=== PATIENT | male | born 1945 | race Caucasian/White ===

== ENCOUNTER → 2016-10-22 | Outpatient (RCR) | payer MEDICARE, OTHER ==
[~2016-10-22] MED LIST: ALLO100T PO; AMLO10TA2 PO; ASPI-999 PO; CLON0.1T PO; CRV25T PO; DOXA8TAB73 PO; ERGO50006 PO; FERR-74 PO; FINA5TAB6 PO; OMEG500C PO
== END | disposition home or self-care (01) ==
LOC: ONC 07-24 10:32
PROVIDERS: ATTEND Radiology Radiation Oncology
DX: Z51.0 Encounter for antineoplastic radiation therapy (principal); C61 Malignant neoplasm of prostate
CPT/HCPCS: 77300; 77301; 77307; 77334; 77336; 77338; 77385; 99214

== ENCOUNTER 2016-10-27 07:50 | Outpatient (RCR) | payer MEDICARE, OTHER | END 2016-11-02 10:45 | disposition home or self-care (01) | LOC: ONC 07:50 | PROVIDERS: ATTEND Radiology Radiation Oncology | DX: Z51.0 Encounter for antineoplastic radiation therapy (principal); C61 Malignant neoplasm of prostate | CPT/HCPCS: 77336; 77385 ==

== ENCOUNTER 2016-11-26 10:49 | Outpatient (RCR) | payer MEDICARE, OTHER ==
[2016-11-19] MEDS: FERRIC CARBOXYMALTOSE 750 MG /NS 250 ML IV SCH ×2 (11:22)
[2016-11-19 12:14] VITALS: BP 132/72
[~2016-11-26] VITALS: Ht 167.6 cm; Wt 95.3 kg
[~2016-11-26 10:49] MED LIST changes: +ACETAMINOPHEN 500 MG TAB (TYLENOL) ONE; +diphenhydrAMINE 50 MG/ML INJ (BENADRYL) ONE
[2016-11-26] MEDS: FERRIC CARBOXYMALTOSE 750 MG /NS 250 ML IV SCH ×2 (11:08)
[2016-11-26 11:30] VITALS: BP 144/78
== END 2017-02-17 | disposition home or self-care (01) ==
LOC: SDC 10:49
PROVIDERS: ATTEND Internal Medicine Nephrology
DX: D50.9 Iron deficiency anemia, unspecified (principal); D63.1 Anemia in chronic kidney disease; N18.4 Chronic kidney disease, stage 4 (severe); Z79.899 Other long term (current) drug therapy
CPT/HCPCS: 96365

== ENCOUNTER 2016-12-31 15:00 | Outpatient (RCR) | payer MEDICARE, OTHER ==
[~2016-12-31 15:00] MED LIST changes: -ACETAMINOPHEN 500 MG TAB (TYLENOL) ONE; -FERR-74 PO; +FERR325T18 PO; -diphenhydrAMINE 50 MG/ML INJ (BENADRYL) ONE
== END 2017-03-31 | disposition home or self-care (01) ==
LOC: ONC 15:00
PROVIDERS: ATTEND Radiology Radiation Oncology
DX: C61 Malignant neoplasm of prostate (principal)
CPT/HCPCS: 36415; 84153; 99213

== ENCOUNTER → 2017-08-05 | Outpatient (CLI) | payer MEDICARE, OTHER ==
--- NOTE | 2017-08-05 11:33 | Diagnostic Imaging Report ---
PROCEDURE: US Renal Bilateral. TECHNIQUE: Multiple real-time grayscale images were obtained over the kidneys in various projections bilaterally. INDICATION: Chronic kidney disease, stage IV. COMPARISON: None. FINDINGS: Right: The right kidney measures 9.8 cm in length. The renal cortex is thinned and echogenic. There is a 2.1 cm hypoechoic cyst in the inferior right kidney. There is no evidence of calculi, solid focal mass or hydronephrosis. No perinephric fluid collections are identified. Left: The left kidney measures 10.8 cm in length. There is renal cortical thinning and increased echogenicity. There are two small hypoechoic cysts in the left kidney, the largest measuring up to 1.3 cm in diameter. There is no evidence of calculi, solid focal mass or hydronephrosis. No perinephric fluid collections are identified. There is no abdominal ascites. Views of the pelvis demonstrate mildly distended urinary bladder. Bilateral ureteral jets were not seen. IMPRESSION: 1. Echogenic, thinned renal cortex, consistent with known chronic kidney disease. No hydronephrosis. Dictated by: Dictated on workstation # [id number]
--- NOTE | 2017-08-05 11:34 | Diagnostic Imaging Report ---
INDICATION: Chronic changes CKD stage 4. Multiple real-time grayscale imaging of the bladder was performed pre-and postvoid. Prevoid bladder volume is calculated to be 54 mL. No significant post void residual bladder volume is seen. The bladder wall is normal in thickness. No bladder mass is detected. IMPRESSION: Unremarkable bladder ultrasound. Dictated by: Dictated on workstation # [id number]
== END ==
LOC: RAD 09:55
PROVIDERS: ATTEND Internal Medicine Nephrology
DX: N18.4 Chronic kidney disease, stage 4 (severe) (principal); I12.9 Hypertensive chronic kidney disease with stage 1 through stage 4 chronic kidney disease, or unspecified chronic kidney disease; D64.9 Anemia, unspecified; E21.1 Secondary hyperparathyroidism, not elsewhere classified; E55.9 Vitamin D deficiency, unspecified; Z72.0 Tobacco use
CPT/HCPCS: 76770; 76857

== ENCOUNTER 2017-11-04 12:45 | Outpatient (RCR) | payer MEDICARE, OTHER ==
[2017-10-21 13:02] VITALS: BP 141/74
[2017-10-21 13:27] LABS: HEMOGLOBIN 9.7 G/DL (13.3-17.7)
[2017-10-21 13:45] LABS: ALBUMIN 4.1 GM/DL (3.2-4.5); CALCIUM 9.4 MG/DL (8.5-10.1); CREATININE SERUM 4.9 MG/DL (0.60-1.30); POTASSIUM 4.6 MMOL/L (3.6-5.0)
[2017-10-21] MEDS: DARBEPOETIN 40 MCG/ML (ARANESP) 1 ML VIAL SC SCH (14:10)
[2017-10-21 14:30] VITALS: BP 141/74
[~2017-11-04] VITALS: Ht 167.6 cm; Wt 95.3 kg
[~2017-11-04 12:45] MED LIST changes: -AMLO10TA2 PO; +AMLO10TA6 PO
[2017-11-04] MEDS: DARBEPOETIN 40 MCG/ML (ARANESP) 1 ML VIAL SC SCH (12:58)
[2017-11-04 13:00] VITALS: BP 129/70
== END 2017-11-14 | disposition home or self-care (01) ==
LOC: SDC 12:45
PROVIDERS: ATTEND Internal Medicine Nephrology
DX: N18.4 Chronic kidney disease, stage 4 (severe) (principal); D63.1 Anemia in chronic kidney disease; Z79.899 Other long term (current) drug therapy
CPT/HCPCS: 36415; 80069; 82728; 83540; 85014; 85018; 96372

== ENCOUNTER 2018-01-27 12:55 | Outpatient (RCR) | payer MEDICARE, OTHER ==
[2017-11-18 13:48] LABS: HEMOGLOBIN 10.4 G/DL (13.3-17.7); MEAN PLATELET VOLUME 9.6 FL (7.4-10.4); RED BLOOD COUNT 3.23 10^6/uL (4.35-5.85); RED CELL DISTRIBUTION WIDTH 13.8 % (10.0-14.5); WHITE BLOOD COUNT 4.4 10^3/uL (4.3-11.0)
[2017-11-18 14:02] LABS: ALBUMIN 4.2 GM/DL (3.2-4.5); CALCIUM 9.3 MG/DL (8.5-10.1); CREATININE SERUM 5.09 MG/DL (0.60-1.30); PHOSPHORUS 5.2 MG/DL (2.3-4.7); POTASSIUM 4.9 MMOL/L (3.6-5.0)
[2017-11-18] MEDS: DARBEPOETIN 40 MCG/ML (ARANESP) 1 ML VIAL SC SCH (14:32)
[2017-11-18 14:35] VITALS: BP 141/80
[2017-12-02] MEDS: DARBEPOETIN 40 MCG/ML (ARANESP) 1 ML VIAL SC SCH (13:04)
[2017-12-02 13:05] VITALS: BP 140/73
[2017-12-16 13:29] LABS: BILIRUBIN,URINE NEGATIVE (NEGATIVE); CLARITY,URINE CLEAR; COLOR,URINE YELLOW; GLUCOSE, URINE (UA) NEGATIVE (NEGATIVE); KETONES,URINE NEGATIVE (NEGATIVE); LEUKOCYTE ESTERASE ,URINE NEGATIVE (NEGATIVE); NITRITE,URINE NEGATIVE (NEGATIVE); PH,URINE 5 (5-9); PROTEIN,URINE 3+ (NEGATIVE); UROBILINOGEN,URINE NORMAL (NORMAL)
[2017-12-16 13:29] LABS: HEMOGLOBIN 11.1 G/DL (13.3-17.7); MEAN PLATELET VOLUME 9.5 FL (7.4-10.4); RED BLOOD COUNT 3.58 10^6/uL (4.35-5.85); RED CELL DISTRIBUTION WIDTH 13.7 % (10.0-14.5); WHITE BLOOD COUNT 4.3 10^3/uL (4.3-11.0)
[2017-12-16 13:50] LABS: BACTERIA,URINE TRACE /HPF; RBC,URINE RARE /HPF; SQUAMOUS EPITHELIAL CELL,UR 0-2 /HPF; WBC,URINE RARE /HPF
[2017-12-16 13:51] LABS: ALBUMIN 4.1 GM/DL (3.2-4.5); CALCIUM 9.4 MG/DL (8.5-10.1); CREATININE SERUM 5.55 MG/DL (0.60-1.30); PHOSPHORUS 5.6 MG/DL (2.3-4.7); POTASSIUM 5.1 MMOL/L (3.6-5.0); URIC ACID 10.6 MG/DL (2.6-7.2)
[2017-12-16 13:55] VITALS: BP 137/71
[2017-12-30 13:31] LABS: HEMOGLOBIN 10.2 G/DL (13.3-17.7)
[2017-12-30] MEDS: DARBEPOETIN 25 MCG/ML (ARANESP) 1 ML HOSPITAL SC SCH (14:00)
[2017-12-30 14:05] VITALS: BP 140/70
[2018-01-13 13:34] LABS: BILIRUBIN,URINE NEGATIVE (NEGATIVE); CLARITY,URINE SLIGHTLY CLOUDY; COLOR,URINE YELLOW; GLUCOSE, URINE (UA) NEGATIVE (NEGATIVE); KETONES,URINE NEGATIVE (NEGATIVE); LEUKOCYTE ESTERASE ,URINE NEGATIVE (NEGATIVE); NITRITE,URINE NEGATIVE (NEGATIVE); PH,URINE 5 (5-9); PROTEIN,URINE 4+ (NEGATIVE); UROBILINOGEN,URINE NORMAL (NORMAL)
[2018-01-13] MEDS: DARBEPOETIN 25 MCG/ML (ARANESP) 1 ML HOSPITAL SC SCH (13:38)
[2018-01-13 13:43] LABS: BACTERIA,URINE NEGATIVE /HPF; RBC,URINE RARE /HPF; SQUAMOUS EPITHELIAL CELL,UR RARE /HPF
[2018-01-13 13:55] VITALS: BP 143/74
[2018-01-13 14:01] LABS: HEMOGLOBIN 10.3 G/DL (13.3-17.7); MEAN PLATELET VOLUME 9.4 FL (7.4-10.4); RED BLOOD COUNT 3.41 10^6/uL (4.35-5.85); RED CELL DISTRIBUTION WIDTH 13.6 % (10.0-14.5); WHITE BLOOD COUNT 4.8 10^3/uL (4.3-11.0)
[2018-01-13 14:25] LABS: INR 1.1 (0.8-1.4)
[2018-01-13 14:34] LABS: ALBUMIN 3.9 GM/DL (3.2-4.5); CALCIUM 9.2 MG/DL (8.5-10.1); CREATININE SERUM 4.61 MG/DL (0.60-1.30); POTASSIUM 4.7 MMOL/L (3.6-5.0); URIC ACID 9.1 MG/DL (2.6-7.2)
[~2018-01-27] VITALS: Ht 167.6 cm; Wt 95.3 kg
[2018-01-27 13:10] VITALS: BP 135/70
[2018-01-27] MEDS: DARBEPOETIN 25 MCG/ML (ARANESP) 1 ML HOSPITAL SC SCH (13:10)
== END 2018-02-16 | disposition home or self-care (01) ==
LOC: SDC 12:55
PROVIDERS: ATTEND Internal Medicine Nephrology
DX: N18.4 Chronic kidney disease, stage 4 (severe) (principal); D63.1 Anemia in chronic kidney disease; Z79.899 Other long term (current) drug therapy
CPT/HCPCS: 36415; 80069; 81000; 82570; 82728; 83540; 84550; 85014; 85018; 85027; 85610; 85730; 96372

== ENCOUNTER 2018-05-05 12:59 | Outpatient (RCR) | payer MEDICARE, OTHER ==
[2018-02-10 13:27] VITALS: BP 152/79
[2018-02-10 14:11] LABS: HEMOGLOBIN 10.2 G/DL (13.3-17.7); MEAN PLATELET VOLUME 9.8 FL (7.4-10.4); RED CELL DISTRIBUTION WIDTH 14.1 % (10.0-14.5); WHITE BLOOD COUNT 4.8 10^3/uL (4.3-11.0)
[2018-02-10] MEDS: DARBEPOETIN 40 MCG/ML (ARANESP) HOSPITAL SC SCH (14:38)
[2018-02-10 14:44] VITALS: BP 152/79
[2018-02-10 14:44] LABS: ALBUMIN 3.8 GM/DL (3.2-4.5); CALCIUM 9.2 MG/DL (8.5-10.1); CREATININE SERUM 5.02 MG/DL (0.60-1.30); PHOSPHORUS 4.9 MG/DL (2.3-4.7); POTASSIUM 5.2 MMOL/L (3.6-5.0); URIC ACID 9.1 MG/DL (2.6-7.2)
[2018-02-24] MEDS: DARBEPOETIN 40 MCG/ML (ARANESP) HOSPITAL SC SCH (13:03)
[2018-02-24 13:05] VITALS: BP 133/73
[2018-03-10 13:16] LABS: HEMOGLOBIN 10.5 G/DL (13.3-17.7)
[2018-03-10] MEDS: DARBEPOETIN 40 MCG/ML (ARANESP) HOSPITAL SC SCH (13:36)
[2018-03-10 13:38] VITALS: BP 146/77
[2018-04-07 12:53] VITALS: BP 136/73
[2018-04-07 13:21] LABS: HEMOGLOBIN 9.5 G/DL (13.3-17.7)
[2018-04-07] MEDS: DARBEPOETIN 25 MCG/ML (ARANESP) 1 ML HOSPITAL SC SCH (13:55)
[2018-04-21 13:10] VITALS: BP 129/67
[2018-04-21] MEDS: DARBEPOETIN 25 MCG/ML (ARANESP) 1 ML HOSPITAL SC SCH (13:10)
[~2018-05-05] VITALS: Ht 167.6 cm; Wt 93.9 kg
[~2018-05-05 12:59] MED LIST changes: -AMLO10TA6 PO; +AMLO10TA7 PO
[2018-05-05 13:20] VITALS: BP 135/71
[2018-05-05 13:55] LABS: CALCIUM 9.2 MG/DL (8.5-10.1); CREATININE SERUM 6.35 MG/DL (0.60-1.30); PHOSPHORUS 5.5 MG/DL (2.3-4.7)
[2018-05-05] MEDS: DARBEPOETIN 25 MCG/ML (ARANESP) 1 ML HOSPITAL SC SCH (13:57)
== END 2018-05-11 | disposition home or self-care (01) ==
LOC: SDC 12:59
PROVIDERS: ATTEND Internal Medicine Nephrology
DX: N18.4 Chronic kidney disease, stage 4 (severe) (principal); D63.1 Anemia in chronic kidney disease; I12.9 Hypertensive chronic kidney disease with stage 1 through stage 4 chronic kidney disease, or unspecified chronic kidney disease; R80.9 Proteinuria, unspecified; E21.1 Secondary hyperparathyroidism, not elsewhere classified; E55.9 Vitamin D deficiency, unspecified; R60.9 Edema, unspecified; Z72.0 Tobacco use
CPT/HCPCS: 36415; 80069; 82728; 83540; 84550; 85014; 85018; 85027; 96372

== ENCOUNTER 2018-08-04 13:25 | Outpatient (RCR) | payer MEDICARE, OTHER ==
[2018-05-19] MEDS: DARBEPOETIN 25 MCG/ML (ARANESP) 1 ML HOSPITAL SC SCH (13:12)
[2018-05-19 13:16] VITALS: BP 146/76
[2018-06-02 13:22] LABS: HEMOGLOBIN 10.5 G/DL (13.3-17.7)
[2018-06-02] MEDS: DARBEPOETIN 25 MCG/ML (ARANESP) 1 ML HOSPITAL SC SCH (13:45)
[2018-06-02 13:50] VITALS: BP 135/69
[2018-06-21 12:38] VITALS: BP 131/70
[2018-06-21] MEDS: DARBEPOETIN 25 MCG/ML (ARANESP) 1 ML HOSPITAL SC SCH (12:53)
[2018-07-05 13:00] VITALS: BP 145/74
[2018-07-05 13:25] LABS: HEMOGLOBIN 10.5 G/DL (13.3-17.7)
[2018-07-05] MEDS: DARBEPOETIN 25 MCG/ML (ARANESP) 1 ML HOSPITAL SC SCH (14:00)
[2018-07-21] MEDS: DARBEPOETIN 25 MCG/ML (ARANESP) 1 ML HOSPITAL SC SCH (13:15)
[2018-07-21 13:20] VITALS: BP 137/74
[~2018-08-04] VITALS: Ht 167.6 cm; Wt 93.9 kg
[2018-08-04 14:13] LABS: HEMOGLOBIN 10.3 G/DL (13.3-17.7)
[2018-08-04 14:24] LABS: ALBUMIN 4.2 GM/DL (3.2-4.5); CALCIUM 9.5 MG/DL (8.5-10.1); PHOSPHORUS 5.5 MG/DL (2.3-4.7); POTASSIUM 4.8 MMOL/L (3.6-5.0)
[2018-08-04] MEDS: DARBEPOETIN 25 MCG/ML (ARANESP) 1 ML HOSPITAL SC SCH (14:49)
[2018-08-04 14:55] VITALS: BP 150/77
== END 2018-08-17 | disposition home or self-care (01) ==
LOC: SDC 13:25
PROVIDERS: ATTEND Internal Medicine Nephrology
DX: N18.4 Chronic kidney disease, stage 4 (severe) (principal); D63.1 Anemia in chronic kidney disease; I12.9 Hypertensive chronic kidney disease with stage 1 through stage 4 chronic kidney disease, or unspecified chronic kidney disease; R80.9 Proteinuria, unspecified; E21.1 Secondary hyperparathyroidism, not elsewhere classified; E55.9 Vitamin D deficiency, unspecified; R60.9 Edema, unspecified; Z72.0 Tobacco use
CPT/HCPCS: 36415; 80069; 82728; 83540; 85014; 85018; 96372

== ENCOUNTER 2018-11-10 12:59 | Outpatient (RCR) | payer MEDICARE, OTHER ==
[2018-08-19] MEDS: DARBEPOETIN 25 MCG/ML (ARANESP) 1 ML HOSPITAL SC SCH (12:19)
[2018-08-19 12:22] VITALS: BP 137/73
[2018-09-01 11:44] LABS: HEMOGLOBIN 9.9 G/DL (13.3-17.7)
[2018-09-01] MEDS: DARBEPOETIN 25 MCG/ML (ARANESP) 1 ML HOSPITAL SC SCH (12:08)
[2018-09-01 12:36] VITALS: BP 140/70
[2018-09-16] MEDS: DARBEPOETIN 25 MCG/ML (ARANESP) 1 ML HOSPITAL SC SCH (13:25)
[2018-09-16 13:29] VITALS: BP 144/70
[2018-09-29 13:05] VITALS: BP 133/72
[2018-09-29 13:24] LABS: HEMOGLOBIN 9.8 G/DL (13.3-17.7)
[2018-09-29] MEDS: DARBEPOETIN 25 MCG/ML (ARANESP) 1 ML HOSPITAL SC SCH (13:44)
[2018-10-13] MEDS: DARBEPOETIN 25 MCG/ML (ARANESP) 1 ML HOSPITAL SC SCH (14:19)
[2018-10-13 14:32] VITALS: BP_SYST 124; BP_SYST 133; BP_SYST 141; BP_DIAS 100; BP_DIAS 72; BP_DIAS 75
[2018-10-27 13:54] LABS: CALCIUM 9.3 MG/DL (8.5-10.1); CREATININE SERUM 7.36 MG/DL (0.60-1.30); PHOSPHORUS 5.1 MG/DL (2.3-4.7); POTASSIUM 4.5 MMOL/L (3.6-5.0)
[2018-10-27 13:56] LABS: HEMOGLOBIN 9.5 G/DL (13.3-17.7)
[2018-10-27 14:25] VITALS: BP 143/73
[~2018-11-10] VITALS: Ht 167.6 cm; Wt 93.9 kg
[~2018-11-10 12:59] MED LIST changes: +DARBEPOETIN 40 MCG/ML (ARANESP) HOSPITAL SC ONE
[2018-11-10] MEDS: DARBEPOETIN 25 MCG/ML (ARANESP) 1 ML HOSPITAL SC SCH (13:28)
[2018-11-10 13:33] VITALS: BP 146/74
== END 2018-11-17 | disposition home or self-care (01) ==
LOC: SDC 12:59
PROVIDERS: ATTEND Internal Medicine Nephrology
DX: N18.4 Chronic kidney disease, stage 4 (severe) (principal); D63.1 Anemia in chronic kidney disease; I12.9 Hypertensive chronic kidney disease with stage 1 through stage 4 chronic kidney disease, or unspecified chronic kidney disease; R80.9 Proteinuria, unspecified; E21.1 Secondary hyperparathyroidism, not elsewhere classified; E55.9 Vitamin D deficiency, unspecified; R60.9 Edema, unspecified; Z72.0 Tobacco use
CPT/HCPCS: 36415; 80069; 82728; 83540; 85014; 85018; 96372

== ENCOUNTER → 2022-02-19 | Outpatient (CLI) | payer MEDICARE, OTHER ==
[~2022-02-19] MED LIST changes: +AMLO-251 PO; -AMLO10TA7 PO; +CLN.1T PO; -CLON0.1T PO; -DARBEPOETIN 40 MCG/ML (ARANESP) HOSPITAL SC ONE
== END ==
LOC: WOUNDCARE 10:59
PROVIDERS: ATTEND Family Medicine
DX: L97.212 Non-pressure chronic ulcer of right calf with fat layer exposed (principal); L89.313 Pressure ulcer of right buttock, stage 3; L98.422 Non-pressure chronic ulcer of back with fat layer exposed; L98.1 Factitial dermatitis; I89.0 Lymphedema, not elsewhere classified; N18.5 Chronic kidney disease, stage 5; D63.1 Anemia in chronic kidney disease; F17.290 Nicotine dependence, other tobacco product, uncomplicated
CPT/HCPCS: 11042; A6212; G0463

== ENCOUNTER → 2022-02-26 | Outpatient (CLI) | payer MEDICARE, OTHER | LOC: WOUNDCARE 08:16 | PROVIDERS: ATTEND Family Medicine | DX: L97.212 Non-pressure chronic ulcer of right calf with fat layer exposed (principal); L89.313 Pressure ulcer of right buttock, stage 3; L98.422 Non-pressure chronic ulcer of back with fat layer exposed; L98.1 Factitial dermatitis; I89.0 Lymphedema, not elsewhere classified; N18.5 Chronic kidney disease, stage 5; F17.290 Nicotine dependence, other tobacco product, uncomplicated; D63.1 Anemia in chronic kidney disease; L28.1 Prurigo nodularis; I96 Gangrene, not elsewhere classified | CPT/HCPCS: 11042; A6207; A6212; G0463 ==

== ENCOUNTER → 2022-03-02 | Outpatient (CLI) | payer MEDICARE, OTHER | LOC: WOUNDCARE 08:11 | PROVIDERS: ATTEND Family Medicine | DX: S81.801A Unspecified open wound, right lower leg, initial encounter (principal); I12.9 Hypertensive chronic kidney disease with stage 1 through stage 4 chronic kidney disease, or unspecified chronic kidney disease; N18.6 End stage renal disease; Z99.2 Dependence on renal dialysis; X58.XXXA Exposure to other specified factors, initial encounter | CPT/HCPCS: 29581; A6207; G0463 ==

== ENCOUNTER → 2022-03-06 | Outpatient (CLI) | payer MEDICARE, OTHER | LOC: WOUNDCARE 09:11 | PROVIDERS: ATTEND Family Medicine | DX: I96 Gangrene, not elsewhere classified (principal); L97.212 Non-pressure chronic ulcer of right calf with fat layer exposed; L89.313 Pressure ulcer of right buttock, stage 3; L28.1 Prurigo nodularis; L98.1 Factitial dermatitis; I89.0 Lymphedema, not elsewhere classified; N18.5 Chronic kidney disease, stage 5; D63.1 Anemia in chronic kidney disease; F17.290 Nicotine dependence, other tobacco product, uncomplicated | CPT/HCPCS: 11042; A6212; G0463 ==

== ENCOUNTER 2022-03-12 21:25 | Emergency (ER) | payer MEDICARE, OTHER ==
[~2022-03-12] VITALS: Ht 167.7 cm; Wt 89.8 kg
--- NOTE | 2022-03-12 21:45 | ED General ---
General Stated Complaint: FLUID OVERLOAD Source of Information: Patient (VERY POOR HISTORIAN. NO PRIOR VISITS HERE. NO FAMILY WITH PT ON ARRIVAL) History of Present Illness Date Seen by Provider: Mar 12, 2022 Time Seen by Provider: 21:29 Initial Comments PT ARRIVES VIA EMS FROM HOME HOME HEALTH NURSE CALLED EMS FOR PT TO BE TRANSFERRED TO [facility] PT IS A PERITONEAL DIALYSIS PATIENT HOME HEALTH NURSE REPORTED THAT PT HAS FLUID OVERLOAD WITH SWELLING TO HANDS AND FEET AND "POSSIBLE PERITONITIS" HGB WAS 7.5 FOR HOME HEALTH NURSE. PT DENIES ABDOMINAL PAIN OR ANY GI SYMPTOMS PT DENIES PAIN ANYWHERE OR FEELING BAD PT WAS UNAWARE OF HANDS AND FEET SWELLING PT DENIES SHORTNESS OF BREATH OR CHEST PAIN NO KNOWN FEVER NO COUGH PT HAS A CHRONIC RIGHT LEG WOUND, AND IS BEING SEEN AT WOUND CARE--RIGHT LEG IS HEAVILY WRAPPED AT THIS TIME. ARRIVES LATER AND STATES THAT LEG WOUND HAS BEEN THERE FOR "SEVERAL WEEKS" AND INITIALLY WAS INFECTED, BUT THE INFECTION IS GONE AND HE IS NO LONGER ON ANTIBIOTICS. PCP: DR. LUIS PASTRANA IN [place], [place] CHILD DEVELOPMENT PROFESSOR: DR. ROSA HOOD Allergies and Home Medications Allergies Coded Allergies: No Known Allergies (Unverified Allergy, Unknown, 08/29/15) Patient Home Medication List Home Medication List Reviewed: Yes Allopurinol (Allopurinol) 100 Mg Tablet, 100 MG PO HS, (Reported) Entered as Reported by: ISRAEL CLAY on 08/29/15 134 Amlodipine Besylate (Amlodipine Besylate) 10 Mg Tablet, 10 MG PO DAILY, (Reported) Entered as Reported by: ISRAEL CLAY on 08/29/15 134 Aspirin (Aspirin) 81 Mg Tab.chew, 81 MG PO DAILY, (Reported) Entered as Reported by: ISRAEL CLAY on 08/29/15 1341 Carvedilol (Coreg) 25 Mg Tab, 25 MG PO BID, (Reported) Entered as Reported by: ISRAEL CLAY on 08/29/15 134 Clonidine HCl (Clonidine HCl) 0.1 Mg Tablet, 0.1 MG PO BID, (Reported) Entered as Reported by: ISRAEL CLAY on 08/29/15 1341 Doxazosin Mesylate (Doxazosin Mesylate) 8 Mg Tablet, 8 MG PO HS, (Reported) Entered as Reported by: ISRAEL CLAY on 08/29/15 1341 Ergocalciferol (Vitamin D2) (Vitamin D2) 50,000 Unit Capsule, 50,000 UNIT PO MONTHLY, (Reported) Entered as Reported by: ISRAEL CLAY on 08/29/15 134 Ferrous Sulfate (Ferrous Sulfate) 325 Mg Tablet, 325 MG PO BID, (Reported) Entered as Reported by: ISRAEL CLAY on 08/29/15 134 Finasteride (Finasteride) 5 Mg Tablet, 5 MG PO DAILY, (Reported) Entered as Reported by: ISRAEL CLAY on 08/29/15 134 Ledbetter-3 Fatty Acids (Fish Oil) 500 Mg Capsule.dr, 1,400 MG PO DAILY, (Reported) Entered as Reported by: ISRAEL CLAY on 08/29/15 134 Review of Systems Review of Systems Constitutional: no symptoms reported EENTM: no symptoms reported Respiratory: no symptoms reported Cardiovascular: no symptoms reported Gastrointestinal: no symptoms reported Genitourinary: see HPI Musculoskeletal: see HPI Skin: no symptoms reported Psychiatric/Neurological: No Symptoms Reported Hematologic/Lymphatic: No Symptoms Reported Immunological/Allergic: no symptoms reported Past Qhsceka-[id number]-Xvhvgq Hx Seasonal Allergies Seasonal Allergies: No Past Medical History Surgeries: Yes (PERITONEAL DIALYSIS) Abdominal Respiratory: No Cardiac: Yes Hypertension Neurological: No Reproductive Disorders: No Genitourinary: Yes (PERITONEAL DIALYSIS; PROSTATE CANCER) Prostate Problems, Renal Failure, Dialysis Gastrointestinal: No Musculoskeletal: Yes (HYPERURICEMIA) Endocrine: No HEENT: No Cancer: Yes Prostate Did You Recieve Any Treatments: Yes What Type of Treatment Did You: Radiation Psychosocial: No Integumentary: Yes (CHRONIC WOUND RIGHT LEG) Blood Disorders: Yes (ANEMIA) Adverse Reaction/Blood Tranf: No Physical Exam Vital Signs Vital Signs - First Documented 03/12/22 21:25 Temp 35.6 Pulse 79 Resp 22 B/P (MAP) 127/74 (91) Pulse Ox 97 O2 Delivery Room Air Capillary Refill : Height, Weight, BMI Height: 5'6.00" Weight: 207lbs. 0.0oz. 93.714465ws; 31.2 BMI Method: General Appearance: No Apparent Distress, WD/WN HEENT: PERRL/EOMI Neck: Normal Inspection Respiratory: Normal Breath Sounds, No Accessory Muscle Use, No Respiratory Distress Cardiovascular: Regular Rate, Rhythm (FREQUENT ECTOPY--C/W PAC'S ON MONITOR), No JVD, No Murmur, Normal Peripheral Pulses Gastrointestinal: Non Tender, Soft; No Tenderness; Other (ABDOMEN IS ROTUND, WITH PERITONEAL DIALYSIS TUBE ON RIGHT SIDE OF ABDOMEN. NO SIGNS OF INFECTION TO THE AREA--NO REDNESS, NO SWELLING, NO DRAINAGE, NO TENDERNESS. ) Back: No CVA Tenderness Extremity: Normal Range of Motion, Non Tender, Pedal Edema (3+ EDEMA TO LEGS AND FEET, HANDS ALSO APPEAR SWOLLEN. RIGHT LOWER LEG IS HEAVILY WRAPPED WITH DRESSINGS PLACED BY WOUND CARE. ) Neurologic/Psychiatric: Alert, Oriented x3, No Motor/Sensory Deficits, nurse monitoring II- XII Norm as Tested Skin: Normal Color, Warm/Dry Focused Exam Sepsis Stage: Ruled Out Reason for ruling out sepsis: DOES NOT MEET CRITERIA Possible Source: GI Tract/Intra-Abdominal Lactate Level 03/12/22 21:40: Lactic Acid Level 0.96 Time of Focused Exam: 22:00 Respiratory: Normal Breath Sounds, No Accessory Muscle Use, No Respiratory Distress Cardiovascular: Regular Rate, Rhythm (WITH PAC'S), No JVD, No Murmur Skin: normal color, warm/dry Lactic Acid Level Laboratory Tests Test 03/12/22 21:40 Lactic Acid Level 0.96 MMOL/L (0.50-2.00) Within 3hrs of presentation: Admin ABX, Blood cultures prior to ABX's, Focus exam, Lactate level Progress/Results/Core Measures Suspected Sepsis Recent Fever Within 48 Hours: No Infection Criteria Present: None New/Unexplained Altered Menta: No Within 3hrs of presentation: Admin ABX, Blood cultures prior to ABX's, Focus exam, Lactate level SIRS Temperature: Pulse: Respiratory Rate: Laboratory Tests 03/12/22 21:40: White Blood Count 6.2 Blood Pressure / Mean: 03/12/22 21:40: Lactic Acid Level 0.96 Laboratory Tests 03/12/22 21:40: Creatinine 10.91H, INR Comment 1.0, Platelet Count 230, Total Bilirubin 0.4 Results/Orders Lab Results Laboratory Tests Test 03/12/22 21:40 Range/Units White Blood Count 6.2 4.3-11.0 10^3/uL Red Blood Count 2.21 L 4.30-5.52 10^6/uL Hemoglobin 7.2 L 13.3-17.7 g/dL Hematocrit 22 L 40-54 % Mean Corpuscular Volume 101 H 80-99 fL Mean Corpuscular Hemoglobin 33 25-34 pg Mean Corpuscular Hemoglobin Concent 32 32-36 g/dL Red Cell Distribution Width 13.8 10.0-14.5 % Platelet Count 230 130-400 10^3/uL Mean Platelet Volume 8.9 L 9.0-12.2 fL Immature Granulocyte % (Auto) 1 % Neutrophils (%) (Auto) 84 H 42-75 % Lymphocytes (%) (Auto) 5 L 12-44 % Monocytes (%) (Auto) 7 0-12 % Eosinophils (%) (Auto) 2 0-10 % Basophils (%) (Auto) 1 0-10 % Neutrophils # (Auto) 5.3 1.8-7.8 10^3/uL Lymphocytes # (Auto) 0.3 L 1.0-4.0 10^3/uL Monocytes # (Auto) 0.5 0.0-1.0 10^3/uL Eosinophils # (Auto) 0.1 0.0-0.3 10^3/uL Basophils # (Auto) 0.0 0.0-0.1 10^3/uL Immature Granulocyte # (Auto) 0.0 0.0-0.1 10^3/uL Neutrophils % (Manual) 87 % Lymphocytes % (Manual) 6 % Monocytes % (Manual) 6 % Eosinophils % (Manual) 1 % Hypochromasia MARKED Microcytosis MARKED Erythrocyte Sedimentation Rate > 140 H 0-30 MM/HR Prothrombin Time 13.9 12.2-14.7 SEC INR Comment 1.0 0.8-1.4 Activated Partial Thromboplast Time 32 24-35 SEC Sodium Level 133 L 135-145 MMOL/L Potassium Level 4.2 3.6-5.0 MMOL/L Chloride Level 95 L 98-107 MMOL/L Carbon Dioxide Level 27 21-32 MMOL/L Anion Gap 11 5-14 MMOL/L Blood Urea Nitrogen 53 H 7-18 MG/DL Creatinine 10.91 H 0.60-1.30 MG/DL Estimat Glomerular Filtration Rate 4 BUN/Creatinine Ratio 5 Glucose Level 115 H 70-105 MG/DL Lactic Acid Level 0.96 0.50-2.00 MMOL/L Calcium Level 9.6 8.5-10.1 MG/DL Corrected Calcium 10.6 H 8.5-10.1 MG/DL Magnesium Level 2.3 1.6-2.4 MG/DL Total Bilirubin 0.4 0.1-1.0 MG/DL Aspartate Amino Transf (AST/SGOT) 19 5-34 U/L Alanine Aminotransferase (ALT/SGPT) 23 0-55 U/L Alkaline Phosphatase 35 L 40-136 U/L Troponin I 0.080 H <0.028 NG/ML C-Reactive Protein High Sensitivity 10.07 H 0.00-0.50 MG/DL Total Protein 5.1 L 6.4-8.2 GM/DL Albumin 2.7 L 3.2-4.5 GM/DL My Orders Orders - MARLENI MARIE DO Ed Iv/Invasive Line Start (03/12/22 21:38) Ekg Tracing (03/12/22 21:38) Monitor-Rhythm Ecg Trace Only (03/12/22 21:38) Chest 1 View, Ap/Pa Only (03/12/22 21:38) Cbc With Automated Diff (03/12/22 21:38) Comprehensive Metabolic Panel (03/12/22 21:38) Hs C Reactive Protein (03/12/22 21:38) Lactic Acid Analyzer (03/12/22 21:38) Magnesium (03/12/22 21:38) Protime With Inr (03/12/22 21:38) Partial Thromboplastin Time (03/12/22 21:38) Erythrocyte Sedimentation Rate (03/12/22 21:38) Troponin I Brodie (03/12/22 21:38) Blood Culture (03/12/22 21:48) Ed Iv/Invasive Line Start (03/12/22 21:48) Vital Signs Adult Sepsis Patie Q15M (03/12/22 21:48) Remove Rings In Anticipation O (03/12/22 21:48) Manual Differential (03/12/22 21:40) Piperacillin Sodium/Tazobactam (Zosyn Vi (03/12/22 22:00) Medications Given in ED Current Medications Medications Dose Ordered Sig/Sampson Route Start Time Stop Time Status Last Admin Dose Admin Piperacillin Sod/ Tazobactam Sod 4.5 gm/Sodium Chloride 100 ml @ 200 mls/hr ONCE ONCE IV 03/12/22 22:00 03/12/22 22:29 DC 03/12/22 22:38 200 MLS/HR Vital Signs/I&O 03/12/22 03/13/22 03/13/22 21:25 00:25 00:39 Temp 35.6 Pulse 79 89 84 Resp 22 20 20 B/P (MAP) 127/74 (91) 140/80 (100) 144/61 Pulse Ox 97 96 95 O2 Delivery Room Air Room Air Room Air 03/13/22 00:00 Intake Total 100 ml Balance 100 ml Capillary Refill : Progress Note : Progress Note SEPSIS LAB ORDERED PT DOES NOT MEET SEPSIS CRITERIA, WITH NO FEVER, NORMAL WBC, NO HYPOTENSION, NO TACHYCARDIA, ( PT IS ON BETA-SEBASTIAN), NORMAL LACTIC ACID, AND NO OBVIOUS EVIDENCE OF INFECTION NOTED AT THIS TIME. DID GIVE A SINGLE DOSE OF ZOSYN PER SEPSIS PROTOCOL PT HAS NO COMPLAINTS FOR ENTIRE ER STAY PT HAS HAD NO PRIOR VISITS HERE, ONLY OUTPATIENT LAB IN 2019 NO IV FLUIDS GIVEN, PT IS ON DIALYSIS AND HAS SIGNS OF FLUID OVERLOAD NO DETERIORATION IN PT'S CONDITION DURING ER STAY PT HAS HAD NO SYMPTOMS OF ANY KIND DURING ER STAY VITALS STABLE NO HYPOXIA NO DYSPNEA NO PAIN NO FEVER NO NAUSEA/VOMITING REVIEWED TEST RESULTS WITH PATIENT AND , NEED FOR TRANSFER AND PT IS AGREEABLE TO THIS PLAN, [facility] ECG Initial ECG Impression Date: Mar 12, 2022 Initial ECG Impression Time: 21:48 Initial ECG Rate: 78 Initial ECG Rhythm: Normal Sinus (RBBB, WITH PAC'S) Initial ECG Comparisson: No Previous ECG Available Comment INTERPRETED BY ME Diagnostic Imaging Comments CXR--PER RADIOLOGIST REPORT AT 2221 FINDINGS: There is cardiomegaly. Pulmonary vasculature is unremarkable. Lungs demonstrate increased interstitial changes suggestive of edema with infiltrate or atelectasis at the left lung base. No effusions. No pneumothorax. IMPRESSION: 1. Suggestion of mild pulmonary edema with atelectasis versus infiltrate at the left lung base. Reviewed: Reviewed by Me Departure Communication (Admissions) 2222--CALLED [facility]. THEY WILL CALL BACK [phone]--SPOKE WITH DR. ANDERSEN, HOSPITALIST AT [facility]. ACCEPTS PT FOR ADMIT. [facility] NOTIFIED OF TRANSFER. Impression Primary Impression: ESRD on peritoneal dialysis Additional Impressions: Anemia Elevated troponin Fluid overload CHRONIC RIGHT LEG WOUND History of hypertension Disposition: 02 XFER SHT-TRM HOSP Condition: Stable Transfer Transfer Reason: Exceeds level of care (NEED FOR NEPHROLOGY SERVICES UNAVAILABLE HERE) [facility] Method of Transfer: EMS Departure-Patient Inst. Referrals: LUIS PASTRANA DO (PCP/Family) Primary Care Physician MARLENI MARIE DO Mar 12, 2022 21:45
[2022-03-12 21:50] LABS: BASOPHILS % (AUTO) 1 % (0-10); EOSINOPHILS # (AUTO) 0.1 10^3/uL (0.0-0.3); EOSINOPHILS % (AUTO) 2 % (0-10); HEMATOCRIT 22 % (40-54); HEMOGLOBIN 7.2 g/dL (13.3-17.7); LYMPHOCYTES # (AUTO) 0.3 10^3/uL (1.0-4.0); LYMPHOCYTES % (AUTO) 5 % (12-44); MEAN CORPUSCULAR HEMOGLOBIN 33 pg (25-34); MEAN CORPUSCULAR HGB CONC 32 g/dL (32-36); MEAN CORPUSCULAR VOLUME 101 fL (80-99); MEAN PLATELET VOLUME 8.9 fL (9.0-12.2); MONOCYTES # (AUTO) 0.5 10^3/uL (0.0-1.0); MONOCYTES % (AUTO) 7 % (0-12); NEUTROPHILS # (AUTO) 5.3 10^3/uL (1.8-7.8); NEUTROPHILS % (AUTO) 84 % (42-75); PLATELET COUNT 230 10^3/uL (130-400); WHITE BLOOD COUNT 6.2 10^3/uL (4.3-11.0)
[2022-03-12] MEDS ORDERED: PIPERACILLIN SODIUM/TAZOBACTAM 4.5 GM in NS (IVPB) 100 ML IV ONE (22:00)
[2022-03-12 22:06] LABS: ALBUMIN 2.7 GM/DL (3.2-4.5); POTASSIUM 4.2 MMOL/L (3.6-5.0)
[2022-03-12 22:08] LABS: CALCIUM 9.6 MG/DL (8.5-10.1); ERYTHROCYTE SEDIMENTATION RATE > 140 MM/HR (0-30)
[2022-03-12 22:09] LABS: TOTAL PROTEIN 5.1 GM/DL (6.4-8.2)
[2022-03-12 22:11] LABS: BILIRUBIN,TOTAL 0.4 MG/DL (0.1-1.0)
[2022-03-12 22:12] LABS: CREATININE SERUM 10.91 MG/DL (0.60-1.30)
[2022-03-12 22:15] LABS: MAGNESIUM 2.3 MG/DL (1.6-2.4)
--- NOTE | 2022-03-12 22:16 | Diagnostic Imaging Report ---
INDICATION: Edema, dialysis. EXAMINATION: Chest 03/12/2022 FINDINGS: There is cardiomegaly. Pulmonary vasculature is unremarkable. Lungs demonstrate increased interstitial changes suggestive of edema with infiltrate or atelectasis at the left lung base. No effusions. No pneumothorax. IMPRESSION: 1. Suggestion of mild pulmonary edema with atelectasis versus infiltrate at the left lung base. Dictated by: Dictated on workstation # [id number]
[2022-03-12 22:21] LABS: EOSINOPHILS % (MANUAL) 1 %; LYMPHOCYTES % (MANUAL) 6 %; MONOCYTES % (MANUAL) 6 %; NEUTROPHILS % (MANUAL) 87 %
[2022-03-12 22:22] LABS: HYPOCHROMASIA MARKED; MICROCYTOSIS MARKED; PROTHROMBIN TIME PATIENT 13.9 SEC (12.2-14.7)
[2022-03-13 00:39] VITALS: BP 144/61
== END 2022-03-13 00:39 | disposition short-term general hospital (02) ==
LOC: EDUNIT# 21:25 → ER 21:26
DX: E87.70 Fluid overload, unspecified (principal); S80.921D Unspecified superficial injury of right lower leg, subsequent encounter; I12.0 Hypertensive chronic kidney disease with stage 5 chronic kidney disease or end stage renal disease; D63.1 Anemia in chronic kidney disease; N18.6 End stage renal disease; R77.8 Other specified abnormalities of plasma proteins; Z99.2 Dependence on renal dialysis; Z28.310 Unvaccinated for COVID-19; X58.XXXA Exposure to other specified factors, initial encounter
CPT/HCPCS: 36415; 71045; 80053; 83605; 83735; 84484; 85007; 85027; 85610; 85652; 85730; 86141; 87040; 93005; 93041

== ENCOUNTER → 2022-03-12 | Outpatient (CLI) | payer MEDICARE, OTHER | LOC: WOUNDCARE 12:18 | PROVIDERS: ATTEND Family Medicine | DX: L97.212 Non-pressure chronic ulcer of right calf with fat layer exposed (principal); I89.0 Lymphedema, not elsewhere classified; N18.5 Chronic kidney disease, stage 5; D63.1 Anemia in chronic kidney disease; L28.1 Prurigo nodularis; L98.1 Factitial dermatitis; I96 Gangrene, not elsewhere classified; F17.290 Nicotine dependence, other tobacco product, uncomplicated | CPT/HCPCS: 11042; A6234; G0463 ==

== ENCOUNTER → 2022-04-02 | Outpatient (CLI) | payer MEDICARE, OTHER | LOC: WOUNDCARE 08:30 | PROVIDERS: ATTEND Family Medicine | DX: L97.212 Non-pressure chronic ulcer of right calf with fat layer exposed (principal); I89.0 Lymphedema, not elsewhere classified; N18.5 Chronic kidney disease, stage 5; D63.1 Anemia in chronic kidney disease; L28.1 Prurigo nodularis; L98.1 Factitial dermatitis; F17.290 Nicotine dependence, other tobacco product, uncomplicated | CPT/HCPCS: 29580; A6212; A6454; A6456; G0463 ==

== ENCOUNTER → 2022-04-07 | Outpatient (CLI) | payer MEDICARE, OTHER | LOC: WOUNDCARE 09:03 | PROVIDERS: ATTEND Family Medicine | DX: I96 Gangrene, not elsewhere classified (principal); L97.212 Non-pressure chronic ulcer of right calf with fat layer exposed; I89.0 Lymphedema, not elsewhere classified; N18.5 Chronic kidney disease, stage 5; L98.1 Factitial dermatitis; L28.1 Prurigo nodularis; D63.1 Anemia in chronic kidney disease; F17.290 Nicotine dependence, other tobacco product, uncomplicated | CPT/HCPCS: 11042; G0463 ==

== ENCOUNTER → 2022-04-13 | Outpatient (CLI) | payer MEDICARE, OTHER | LOC: WOUNDCARE 08:10 | PROVIDERS: ATTEND Family Medicine | DX: L97.212 Non-pressure chronic ulcer of right calf with fat layer exposed (principal); I89.0 Lymphedema, not elsewhere classified; N18.5 Chronic kidney disease, stage 5; F17.290 Nicotine dependence, other tobacco product, uncomplicated; D63.1 Anemia in chronic kidney disease; L28.1 Prurigo nodularis; L98.1 Factitial dermatitis | CPT/HCPCS: 99212 ==